=== PATIENT | female | born 1935 | race Caucasian/White ===

== ENCOUNTER 2016-09-22 10:00 | Inpatient (IN) ==
[2016-09-22 12:07] LABS: Basophils # (Auto) 0 K/mcL (0.0-0.3); Basophils % (Auto) 0.1 % (0.0-2.0); Eosinophils # (Auto) 0 K/mcL (0.0-0.7); Eosinophils % (Auto) 0.3 % (0.0-7.0); Granulocytes % (Auto) 80.7 % (38.0-78.0); Lymphocytes # (Auto) 1.1 K/mcL (1.5-4.8); Lymphocytes % (Auto) 14.7 % (15.5-49.0); Mean Cell Volume 89.3 fL (80.0-100.0); Mean Corpuscular HGB Conc 33.8 g/dL (31.0-36.0); Mean Corpuscular Hemoglobin 30.1 pg (26.0-34.0); Monocytes # (Auto) 0.3 K/mcL (0.1-0.9); Monocytes % (Auto) 4.2 % (1.0-12.0); Platelet Count 230 K/mcL (140-440); RBC 4.32 M/mcL (4.00-5.20); Red Cell Distribution Width 13.9 % (11.5-14.5)
[2016-09-22 12:18] LABS: Blood Urea Nitrogen 17 mg/dl (8-23)
[2016-09-22 12:43] LABS: Appearance,Urine HAZY; Bilirubin,Urine NEG (NEG); Color,Urine YELLOW; Glucose,Urine (UA) NEGATIVE (NEG); Leukocyte Esterase,Urine NEG /uL (NEG); Nitrate,Urine NEG (NEG); Protein,Urine NEG (NEG); Specific Gravity,Urine 1.016 (1.000-1.035); Urine Blood NEG mg/dL (<0.03); Urobilinogen,Urine NEG (NEG)
[2016-09-25] MEDS ORDERED: GABAPENTIN 300 MG CAPSULE PO SCH (05:00)
[2016-09-25] MEDS ORDERED: ACETAMINOPHEN 500 MG TABLET PO SCH (05:00)
[2016-09-25] MEDS ORDERED: oxyCODONE 10 MG TAB.ER.12H PO SCH (05:00)
[2016-09-25] MEDS ORDERED: ONDANSETRON 4 MG/2 ML VIAL ONE (08:15)
[2016-09-25] MEDS: ceFAZolin 1 GM VIAL IV SCH ×3 (08:25→17:38)
[2016-09-25] MEDS ORDERED: TRANEXAMIC ACID 1,000 MG/10 ML VIAL IV ONE (08:30)
[2016-09-25] MEDS ORDERED: LIDOCAINE HCL/PF 100 MG/5 ML SYRINGE IV ONE (08:30)
[2016-09-25] MEDS ORDERED: PHENYLEPHRINE 10 MG/ML VIAL IV ONE (08:30)
[2016-09-25] MEDS ORDERED: PROPOFOL 200 MG/20 ML VIAL IV ONE (08:30)
[2016-09-25] MEDS ORDERED: SUCCINYLCHOLINE 20 MG/ML ML IV ONE (08:30)
[2016-09-25] MEDS ORDERED: DEXAMETHASONE 10 MG/ML VIAL IV ONE (08:30)
[2016-09-25] MEDS ORDERED: KETOROLAC 30 MG/ML VIAL IV ONE (08:30)
[2016-09-25] MEDS ORDERED: MIDAZOLAM 5 MG/5 ML VIAL IV ONE (08:30)
[2016-09-25] MEDS ORDERED: fentaNYL 250 MCG/5 ML VIAL IV ONE (08:30)
[2016-09-25] MEDS ORDERED: ROPIVACAINE HCL/PF 30 ML VIAL IJ ONE (08:30)
[2016-09-25] MEDS ORDERED: GENTAMICIN SULFATE 800 MG/20 ML VIAL IR ONE (09:17)
[2016-09-25] MEDS ORDERED: diphenhydrAMINE 50 MG/ML VIAL IV PRN (09:45)
[2016-09-25] MEDS ORDERED: ePHEDrine 50 MG/ML AMPUL IV PRN (09:45)
[2016-09-25] MEDS ORDERED: LACTATED RINGERS 1,000 ML IV SCH (09:45)
[2016-09-25] MEDS ORDERED: MEPERIDINE 25 MG/ML SYRINGE IV PRN (09:45)
[2016-09-25] MEDS ORDERED: LACTATED RINGERS 250 ML IV PRN (09:45)
[2016-09-25] MEDS ORDERED: PROMETHAZINE 25 MG/ML VIAL IV PRN (09:45)
[2016-09-25] MEDS ORDERED: IPRATROPIUM/ALBUTEROL 3 ML AMPUL.NEB NEB PRN (09:45)
[2016-09-25] MEDS ORDERED: ONDANSETRON 4 MG/2 ML VIAL IV PRN (09:45)
[2016-09-25] MEDS ORDERED: METHOCARBAMOL 1,000 MG/10 ML VIAL IV PRN (09:45)
[2016-09-25] MEDS ORDERED: MEPERIDINE 50 MG/ML SYRINGE IM PRN (09:45)
[2016-09-25] MEDS ORDERED: BENZOCAINE/MENTHOL 1 LOZENGE PO PRN ×2 (09:45→10:19)
[2016-09-25] MEDS ORDERED: fentaNYL 100 MCG/2 ML VIAL IV PRN (09:45)
[2016-09-25] MEDS ORDERED: FLUMAZENIL 0.1 MG/ML ML IV PRN (09:45)
[2016-09-25] MEDS ORDERED: PROMETHAZINE 25 MG/ML VIAL IM PRN (09:45)
[2016-09-25] MEDS ORDERED: NALOXONE HCL 0.4 MG/ML VIAL IV PRN (09:45)
[2016-09-25] MEDS ORDERED: TRANEXAMIC ACID 1,000 MG/10 ML VIAL IV SCH (10:19)
[2016-09-25] MEDS ORDERED: ACETAMINOPHEN 325 MG TABLET PO PRN (10:19)
[2016-09-25] MEDS ORDERED: HYDROmorphone 2 MG/ML SYRINGE IV PRN (10:19)
[2016-09-25] MEDS ORDERED: POLYETHYLENE GLYCOL 3350 17 GM PACKET PO PRN (10:19)
[2016-09-25] MEDS ORDERED: HYDROcodone/APAP 10/325MG TABLET PO PRN (10:19)
[2016-09-25] MEDS ORDERED: KETOROLAC 15 MG/ML VIAL IV PRN (10:19)
[2016-09-25] MEDS ORDERED: FLEETS ADULT ENEMA PR PRN (10:19)
[2016-09-25] MEDS ORDERED: MAGNESIUM HYDROXIDE 30 ML ORAL.SUSP PO PRN (10:19)
[2016-09-25] MEDS ORDERED: BISACODYL 10 MG SUPP.RECT PR PRN (10:19)
--- NOTE | 2016-09-25 10:46 | Operative Note ---
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 PROCEDURE: Left reverse total shoulder with cementless components as well as biceps tenodesis and distal clavicle excision. SURGEON: Rishabh Rodrigues MD PROMOTIONAL MARKETING AGENT: Jimy Castaneda PA-C. ANESTHESIA: General LMA anesthesia. COMPLICATIONS: None. DESCRIPTION OF PROCEDURE: The patient was brought to the operating room and put to sleep with general LMA anesthesia. Once asleep, the patient had the left shoulder sterilely prepped and draped in the usual sterile fashion. Once this was done, we exposed the joint and released the conjoint tendon medially and released the subscap muscle and exposed the joint. We made our cut to the humeral head at about 20 degrees of retroversion. Once this was done, I irrigated and subluxed the shaft posteriorly. I performed a 360 degree capsulotomy and released the remnants of the biceps tendon. I then biceps tenodesed the biceps tendon to the pec major with 2 figure-of-8 stitches with FiberWire, irrigated thoroughly. Once this was done, I then reamed centrally up to the size 36, placed a 36 baseplate with a 32 mm central screw. Once this baseplate was fixated I placed a 36 mm glenosphere with 2 mm of eccentricity and 6 mm of offset. Once this was done, I then reamed up on the humeral side. This was reamed up to the size 12 stem and a 12 stem was placed with a trial. This seemed to fit very nicely. I placed a size 12 stem with a standard thickness poly. This was reduced with the final implants. I irrigated thoroughly and I then placed irrigation and implanted the stem, reduced the head and irrigated thoroughly. I then closed the deltopectoral interval after thorough irrigation. I made a separate incision above the acromioclavicular joint. Once this was done, I released the capsule around the distal clavicle, excised 10 mm of distal clavicle, used the Bovie to take out any spurs and stop any bleeding, repaired the capsule superiorly with 2-0 Vicryl after the bony fragment was removed and closed the skin with 2-0 Vicryl and closed the skin with 3-0 Monocryl. The other incision was closed with mirna. The patient tolerated this well without complication. A sterile bandage was applied. A DonJoy sling was fitted and given to the patient. ALEKSANDAR:yenifer Job ID: [id number] Doc ID: [id number] Rishabh Rodrigues MD
--- NOTE | 2016-09-25 11:21 | XRay Report ---
CLINICAL INFORMATION: Postop total shoulder prostheses COMPARISON: None. FINDINGS: Left shoulder prostheses is anatomically aligned. No osseous abnormality. Soft tissue swelling seen as expected. IMPRESSION: Negative Interpreted and Authenticated by: Magdi Fischer 09/25/16
[2016-09-25] MEDS: 0.45 % SODIUM CHLORIDE 1,000 ML IV SCH ×4 (12:42→22:48)
--- NOTE | 2016-09-25 12:44 | Brief Operative Note ---
Date of procedure: 09/25/16 Pre-op diagnosis: Left shoulder rca and ac djd and bicep tear Post-op diagnosis: same Procedure: left reverse tsa with bicep tenodesis and dce Grafts/Implants: Yes Anesthesia: GETA Findings: svere alicia Complications: none Surgeon: Rishabh Rodrigues Campaign Management Specialist: Leo Castaneda Estimated blood loss (cc): 20 Tourniquet Time (Minutes): 85 Specimens Removed/Pathology: none sent Condition: stable Disposition: PACU
[2016-09-25] MEDS: 0.9 % SODIUM CHLORIDE 10 ML SYRINGE IV SCH ×2 (14:14→22:49)
[2016-09-25] MEDS: ONDANSETRON 4 MG/2 ML VIAL IV PRN ×2 (17:39→21:19)
[2016-09-25] MEDS ORDERED: SENNOSIDES 1 TABLET PO SCH (21:00)
[2016-09-25] MEDS ORDERED: ATORVASTATIN 20 MG TABLET PO SCH (21:00)
[2016-09-25] MEDS ORDERED: PREVAGEN PO SCH (21:00)
[2016-09-25] MEDS ORDERED: NAPROXEN (PP) 200MG TABLET (#24) PO SCH (21:00)
[2016-09-25] MEDS ORDERED: LACTOBACILLUS 1 CAPSULE PO SCH (21:00)
[2016-09-25] MEDS ORDERED: CINNAMON BARK PO SCH (21:00)
[2016-09-25] MEDS ORDERED: OXYBUTYNIN CHLORIDE 5 MG TAB.XL.24H PO SCH (21:00)
[2016-09-25] MEDS ORDERED: TEMAZEPAM 15 MG CAPSULE PO PRN (21:00)
[2016-09-25] MEDS ORDERED: CELECOXIB 200 MG CAPSULE PO SCH (21:00)
[2016-09-25] MEDS ORDERED: ASPIRIN 325 MG ENTERIC COATED TABLET PO SCH (21:00)
[2016-09-25] MEDS ORDERED: ASCORBIC ACID 500 MG TABLET PO SCH (21:00)
[2016-09-25] MEDS: GABAPENTIN 300 MG CAPSULE PO SCH (21:30)
[2016-09-25] MEDS: ACETAMINOPHEN 325 MG TABLET PO SCH (21:30)
[2016-09-25] MEDS: DOCUSATE SODIUM 100 MG CAPSULE PO SCH (21:30)
[2016-09-26] MEDS: ceFAZolin 1 GM VIAL IV SCH (00:31)
[2016-09-26] MEDS: 0.9 % SODIUM CHLORIDE 10 ML SYRINGE IV SCH (05:41)
[2016-09-26] MEDS: 0.45 % SODIUM CHLORIDE 1,000 ML IV SCH (05:42)
[2016-09-26] MEDS ORDERED: PANTOPRAZOLE 40 MG TABLET PO SCH (07:30)
[2016-09-26] MEDS: ACETAMINOPHEN 325 MG TABLET PO SCH (07:49)
[2016-09-26] MEDS ORDERED: predniSONE 1 MG TABLET PO SCH (08:00)
[2016-09-26] MEDS: GABAPENTIN 300 MG CAPSULE PO SCH (08:32)
[2016-09-26] MEDS: DOCUSATE SODIUM 100 MG CAPSULE PO SCH (08:35)
[2016-09-26] MEDS ORDERED: VIT A,C & E/LUTEIN/MINERALS TABLET PO SCH (09:00)
--- NOTE | 2016-09-26 09:52 | Orthopedic Progress Note ---
Subjective Patient information: Note initiated : 09/26/16 at 9:50 am Service Date, if different from initiated Date: [] Patient: Pau De La Torre 80 y/o F admitted on 09/25/16 for Left Reverse Total Shoulder Arthroplasty with Miguel. Chief Complaint: [doing well with no c/o sob or cp and eating well but had n and v yesterday] Objective Vital signs: Vital Signs Temp Pulse Resp BP BP Pulse Ox 09/26/16 08:13 98 F 18 144/74 91 09/26/16 04:50 97.9 F 77 18 144/76 95 09/25/16 22:46 97.9 F 81 16 160/83 93 09/25/16 20:00 97.4 F 78 18 157/76 92 09/25/16 13:55 149/64 99 09/25/16 12:55 153/80 96 09/25/16 12:25 157/76 98 09/25/16 11:40 157/64 95 09/25/16 11:25 154/72 95 09/25/16 11:13 65 16 146/62 92 09/25/16 10:53 61 11 L 157/46 94 09/25/16 10:40 67 14 144/63 97 09/25/16 10:35 68 17 149/60 97 09/25/16 10:30 67 12 146/63 97 09/25/16 10:25 65 12 134/56 99 09/25/16 10:20 97.3 F 22 L 12 134/56 99 Intake and Output 09/25/16 09/26/16 09/26/16 21:59 05:59 13:59 Intake Total 320 / 320 1350 / 1350 620 / 620 Output Total 1301 / 1301 1100 / 1100 250 / 250 Balance -981 / -981 250 / 250 370 / 370 Intake: IV 1000 / 1000 Sodium Chloride 0.45% 1, 1000 / 1000 000 ml @ 100 mls/hr IV . Q10H [facility] Rx#:[id number] Oral 320 / 320 350 / 350 620 / 620 Output: Void Amount 850 / 850 1100 / 1100 250 / 250 # of times incontinent of 1 / 1 urine Emesis 450 / 450 Other: Meal Dinner Percent of Meal Consumed 75% Feeding Ability Assist with Tray Set Up # Voids 1 Weight 198 lb 8 oz Intake & Output: Intake & Output 05/26/17 05/27/17 05/27/17 21:59 05:59 13:59 Intake Total 320 / 320 1350 / 1350 620 / 620 Output Total 1301 / 1301 1100 / 1100 250 / 250 Balance -981 / -981 250 / 250 370 / 370 Weight 198 lb 8 oz Intake: IV 1000 / 1000 Sodium Chloride 0.45% 1, 1000 / 1000 000 ml @ 100 mls/hr IV . Q10H [facility] Rx#:[id number] Oral 320 / 320 350 / 350 620 / 620 Output: Void Amount 850 / 850 1100 / 1100 250 / 250 # of times incontinent of urine Emesis 450 / 450 Other: Meal Dinner Percent of Meal Consumed 75% Feeding Ability Assist with Tray Set Up # Voids 1 Incision: Yes healing Incision clean and dry: Yes Dressing: Yes clean Weight bearing status: partial Neurological exam IM: Yes oriented X3, Yes neurovascular intact Extremities exam IM: Yes Foot pink and warm, Yes neurovascular intact (Plan to dc home today ) - Labs CBC & BMP: 09/22/16 10:41 09/22/16 10:41 Labs: 09/22/16 10:41 Hgb 13.0 Hct 38.5
== END 2016-09-26 11:35 | disposition home or self-care (01) | DRG 483 ==
LOC: MEDSUR 09-25 06:23
PROVIDERS: ADMIT Orthopaedic Surgery; ATTEND Orthopaedic Surgery

== ENCOUNTER 2017-10-25 05:27 | Inpatient (IN) ==
[2017-10-18 16:13] LABS: Basophils # (Auto) 0 K/mcL (0.0-0.3); Basophils % (Auto) 0.3 % (0.0-2.0); Eosinophils # (Auto) 0 K/mcL (0.0-0.7); Eosinophils % (Auto) 0.5 % (0.0-7.0); Granulocytes % (Auto) 74.8 % (38.0-78.0); Lymphocytes # (Auto) 1.3 K/mcL (1.5-4.8); Lymphocytes % (Auto) 18.7 % (15.5-49.0); Mean Cell Volume 90.1 fL (80.0-100.0); Mean Corpuscular HGB Conc 33.6 g/dL (31.0-36.0); Mean Corpuscular Hemoglobin 30.2 pg (26.0-34.0); Monocytes # (Auto) 0.4 K/mcL (0.1-0.9); Monocytes % (Auto) 5.7 % (1.0-12.0); Platelet Count 254 K/mcL (140-440); RBC 4.43 M/mcL (4.00-5.20); Red Cell Distribution Width 14.5 % (11.5-14.5)
[2017-10-18 16:34] LABS: Blood Urea Nitrogen 27 mg/dl (8-23)
[2017-10-18 16:40] LABS: Appearance,Urine HAZY; Bacteria,Urine 0 /hpf (0); Bilirubin,Urine NEG (NEG); Color,Urine YELLOW; Glucose,Urine (UA) NEGATIVE (NEG); Leukocyte Esterase,Urine 250 /uL (NEG); Protein,Urine NEG (NEG); Urine Blood NEG mg/dL (<0.03); Urine RBC 1 /hpf (0-1); Urine Squamous Epithelial Cell 3 /hpf (0-4); Urine WBC 20 /hpf (0-4); Urobilinogen,Urine NEG (NEG)
[~2017-10-25 05:27] MED LIST: IPRATROPIUM/ALBUTEROL 3 ML AMPUL.NEB NEB PRN; SCOPOLAMINE 1 PATCH PATCH TOPICAL PRN
[2017-10-25] MEDS ORDERED: oxyCODONE 10 MG TAB.ER.12H PO SCH (07:00)
[2017-10-25] MEDS ORDERED: PREGABALIN 75 MG CAPSULE PO SCH (07:00)
[2017-10-25] MEDS ORDERED: ACETAMINOPHEN 500 MG TABLET PO SCH (07:00)
[2017-10-25] MEDS ORDERED: ceFAZolin 1 GM VIAL IV SCH (07:00)
[2017-10-25] MEDS ORDERED: KETOROLAC 30 MG, ROPIVACAINE HCL/PF 49.5 ML, EPINEPHrine 0.5 MG, 0.9 % SODIUM CHLORIDE ... IJ ONE (07:02)
[2017-10-25] MEDS ORDERED: GENTAMICIN SULFATE 800 MG/20 ML VIAL IR ONE (07:03)
[2017-10-25 07:05] LABS: Appearance,Urine CLEAR; Bacteria,Urine 0 /hpf (0); Bilirubin,Urine NEG (NEG); Color,Urine YELLOW; Glucose,Urine (UA) NEGATIVE (NEG); Leukocyte Esterase,Urine NEG /uL (NEG); Mucus,Urine FEW /hpf (0); Protein,Urine NEG (NEG); Specific Gravity,Urine 1.018 (1.000-1.035); Urine Blood NEG mg/dL (<0.03); Urine Hyaline Cast 7 /lpf (0-2); Urine RBC 2 /hpf (0-1); Urine Squamous Epithelial Cell 0 /hpf (0-4); Urine WBC 2 /hpf (0-4); Urobilinogen,Urine NEG (NEG)
[2017-10-25] MEDS ORDERED: GENTAMICIN PER PHARMACY IV ONE (07:29)
[2017-10-25] MEDS ORDERED: LIDOCAINE HCL/PF 100 MG/5 ML SYRINGE IV ONE (07:45)
[2017-10-25] MEDS ORDERED: ONDANSETRON 4 MG/2 ML VIAL IV ONE (07:45)
[2017-10-25] MEDS ORDERED: TRANEXAMIC ACID 1,000 MG/10 ML VIAL IV ONE ×2 (07:45→09:05)
[2017-10-25] MEDS ORDERED: SUCCINYLCHOLINE 20 MG/ML ML IV ONE (07:45)
[2017-10-25] MEDS ORDERED: DEXAMETHASONE 10 MG/ML VIAL IV ONE (07:45)
[2017-10-25] MEDS ORDERED: GENTAMICIN SULFATE 240 MG in 0.9 % SODIUM CHLORIDE 250 ML IV SCH (07:45)
[2017-10-25] MEDS ORDERED: MIDAZOLAM 2 MG/2 ML VIAL IV ONE (07:45)
[2017-10-25] MEDS ORDERED: PROPOFOL 200 MG/20 ML VIAL IV ONE (07:45)
[2017-10-25] MEDS ORDERED: GLYCOPYRROLATE 0.2 MG/ML VIAL IV ONE (07:45)
[2017-10-25] MEDS ORDERED: fentaNYL 100 MCG/2 ML VIAL IV PRN (08:34)
[2017-10-25] MEDS ORDERED: LACTATED RINGERS 250 ML IV PRN (08:34)
[2017-10-25] MEDS ORDERED: BENZOCAINE/MENTHOL 1 LOZENGE PO PRN ×2 (08:34→09:05)
[2017-10-25] MEDS ORDERED: ONDANSETRON 4 MG/2 ML VIAL IV PRN ×2 (08:34→09:05)
[2017-10-25] MEDS ORDERED: PROMETHAZINE 25 MG/ML VIAL IV PRN (08:34)
[2017-10-25] MEDS ORDERED: MEPERIDINE 25 MG/ML SYRINGE IV PRN (08:34)
[2017-10-25] MEDS ORDERED: NALOXONE HCL 0.4 MG/ML VIAL IV PRN (08:34)
[2017-10-25] MEDS ORDERED: FLUMAZENIL 0.1 MG/ML ML IV PRN (08:34)
[2017-10-25] MEDS ORDERED: diphenhydrAMINE 50 MG/ML VIAL IV PRN (08:34)
[2017-10-25] MEDS ORDERED: IPRATROPIUM/ALBUTEROL 3 ML AMPUL.NEB NEB PRN (08:34)
[2017-10-25] MEDS ORDERED: LACTATED RINGERS 1,000 ML IV SCH (08:45)
[2017-10-25] MEDS ORDERED: KETOROLAC 15 MG/ML VIAL IV PRN (09:05)
[2017-10-25] MEDS ORDERED: FLEETS ADULT ENEMA PR PRN (09:05)
[2017-10-25] MEDS ORDERED: TEMAZEPAM 15 MG CAPSULE PO PRN (09:05)
[2017-10-25] MEDS ORDERED: MAGNESIUM HYDROXIDE 30 ML ORAL.SUSP PO PRN (09:05)
[2017-10-25] MEDS ORDERED: POLYETHYLENE GLYCOL 3350 17 GM PACKET PO PRN (09:05)
[2017-10-25] MEDS ORDERED: ACETAMINOPHEN 325 MG TABLET PO PRN (09:05)
[2017-10-25] MEDS ORDERED: BISACODYL 10 MG SUPP.RECT PR PRN (09:05)
--- NOTE | 2017-10-25 09:05 | Brief Operative Note ---
Date of procedure: 10/25/17 Pre-op diagnosis: Right hip djd Post-op diagnosis: same Procedure: right total hip Grafts/Implants: Yes Anesthesia: NICHOLAS Surgeon: Rishabh Rodrigues Refiner Operator: David Arellano Estimated blood loss (cc): 100 Specimens Removed/Pathology: none sent Condition: stable Disposition: PACU
--- NOTE | 2017-10-25 09:53 | Operative Note ---
DATE OF OPERATION: 10/25/2017 PREOPERATIVE DIAGNOSIS: Right hip degenerative arthritis. POSTOPERATIVE DIAGNOSIS: Right hip degenerative arthritis. PROCEDURE: Right total hip arthroplasty. SURGEON: Rishabh Rodrigues MD PATTERN STAMPER: David Arellano PA-C ANESTHESIA: General LMA anesthesia. COMPLICATIONS: None. DESCRIPTION OF PROCEDURE: The patient was brought to the operating room and put to sleep with general LMA anesthesia. Once asleep, the patient had the right hip sterilely prepped and draped in the usual sterile fashion. A timeout was performed and we confirmed the operative site. We then performed a superior approach to the hip, making an incision superior to the greater trochanter. We dissected down to the fascial layer incised with the muscle fibers. Once this was done, we then identified the posterior capsule. The posterior capsule was then released. We dislocated the hip and made the neck cut at 30 mm of length from the center of hip rotation. At that point we then subluxed the hip anteriorly, reamed up the acetabulum after removing the labrum which was torn. This was reamed up to the size 52 and we implanted a 52 cup with a 35 mm screw. Inclination and version, 40 degrees of inclination and 15 to 20 degrees of anteversion. We placed a hooded liner and then prepared the femur. The femur was prepared and broached up to the size of a 5 stem, reamed distally to a 10 and then cemented into place after trialing and x-raying the hip with a 5 stem cemented. Reaming the calcar slightly lower than where we were, we were a little bit long, about 1/4 inch long. We reamed to within anatomic proportions and then placed the stem. The stem sat very nicely. Once completely dry in 15 degrees of anteversion, we then reduced the hip with a standard neck length. It was very stable up to 90 degrees of internal and external rotation. The hooded liner had already been placed for extra stability. We irrigated thoroughly, injected the soft tissues with the post-inject formula, and closed the fascial layer with #1 Stratafix. Once this was done, we irrigated thoroughly and closed the skin with a Stratafix, with the fascial layer. We closed the skin with 2-0 Vicryl and adhesive closure. The patient tolerated this well. There was no complication. Sterile bandage was applied. Blood loss about 100 mL RBAnoop:gilmar Lehman: 10/25/2017 09:10:37 Job ID: [id number] Doc ID: [id number] Rishabh Rodrigues MD
--- NOTE | 2017-10-25 12:19 | XRay Report ---
CLINICAL INFORMATION: Post-op Total Hip COMPARISON: None. FINDINGS: Right total hip prosthesis is anatomically aligned. There is mild degenerative change in both SI and left hip joint. There is a small avulsion on a fracture off the tip of the left greater trochanter.. Soft tissue swelling the surgical site seen as expected IMPRESSION: Negative Interpreted and Authenticated by: Magdi Fischer 10/25/17
[2017-10-25] MEDS: HYDROmorphone 2 MG/ML VIAL IV PRN ×2 (12:39→17:46)
[2017-10-25] MEDS: ceFAZolin 1 GM VIAL IV SCH ×2 (14:23→21:44)
[2017-10-25] MEDS: 0.45 % SODIUM CHLORIDE 1,000 ML IV SCH (14:24)
[2017-10-25] MEDS: 0.9 % SODIUM CHLORIDE 10 ML SYRINGE IV SCH ×2 (14:40→21:47)
[2017-10-25] MEDS ORDERED: NAPROXEN 250 MG TABLET PO SCH (17:30)
[2017-10-25] MEDS ORDERED: LOSARTAN 50 MG TABLET PO SCH (21:00)
[2017-10-25] MEDS ORDERED: ACETAMINOPHEN 325 MG TABLET PO SCH (21:00)
[2017-10-25] MEDS ORDERED: SENNOSIDES 1 TABLET PO SCH (21:00)
[2017-10-25] MEDS ORDERED: ASCORBIC ACID 500 MG TABLET PO SCH (21:00)
[2017-10-25] MEDS ORDERED: ATORVASTATIN 20 MG TABLET PO SCH (21:00)
[2017-10-25] MEDS ORDERED: LACTOBACILLUS 1 CAPSULE PO SCH (21:00)
[2017-10-25] MEDS ORDERED: OXYBUTYNIN CHLORIDE 5 MG TAB.XL.24H PO SCH (21:00)
[2017-10-25] MEDS ORDERED: CINNAMON BARK PO SCH (21:00)
[2017-10-25] MEDS: ASPIRIN 325 MG ENTERIC COATED TABLET PO SCH (21:26)
[2017-10-25] MEDS: DOCUSATE SODIUM 100 MG CAPSULE PO SCH (21:26)
[2017-10-25] MEDS: GABAPENTIN 300 MG CAPSULE PO SCH (21:27)
[2017-10-25] MEDS: ALFALFA PO SCH (21:28)
[2017-10-26] MEDS: 0.45 % SODIUM CHLORIDE 1,000 ML IV SCH ×2 (01:21→06:45)
[2017-10-26] MEDS: 0.9 % SODIUM CHLORIDE 10 ML SYRINGE IV SCH (06:45)
--- NOTE | 2017-10-26 07:28 | Orthopedic Progress Note ---
Subjective Patient information: Note initiated : 10/26/17 at 7:27 am Service Date, if different from initiated Date: [] Patient: Pau De La Torre 81 y/o F admitted on 10/25/17 for Right Total Hip Arthroplasty . Chief Complaint: [Pt is stable this morning on post operative day 1 without any significant concerns or complaints. Patients vital signs have remained stable. Patients dressing is dry and is grossly instact from a neurovascular and motor standpoint. Patients 10 point ROS is otherwise negative. ] Objective Vital signs: Vital Signs Temp Pulse Pulse Pulse Resp BP Pulse Ox 10/26/17 04:00 97.9 F 63 14 172/67 92 10/25/17 23:52 97.9 F 66 14 154/79 94 10/25/17 23:51 94 10/25/17 19:10 80 16 94 10/25/17 19:07 98.2 F 69 16 146/71 90 10/25/17 19:00 90 10/25/17 17:00 93 10/25/17 15:09 98 F 18 96 10/25/17 15:00 96 10/25/17 13:09 136/79 93 10/25/17 13:00 92 10/25/17 12:08 166/76 95 10/25/17 11:37 154/64 95 10/25/17 11:08 159/65 95 10/25/17 11:06 93 10/25/17 10:53 142/64 96 10/25/17 10:37 140/62 96 10/25/17 10:23 135/58 96 10/25/17 10:15 96.6 F L 65 16 130/78 94 10/25/17 10:12 94 10/25/17 10:07 124/72 94 10/25/17 09:52 98.7 F 69 20 121/42 95 10/25/17 09:40 97.0 F 71 11 L 110/53 97 10/25/17 09:35 97.0 F 73 14 110/45 95 10/25/17 09:30 97.0 F 72 16 116/58 92 10/25/17 09:25 97.0 F 78 20 119/41 99 10/25/17 09:20 97.0 F 77 18 128/50 99 10/25/17 09:15 97.0 F 91 H 91 H 12 83/62 96 Intake and Output 10/25/17 10/26/17 10/26/17 21:59 05:59 13:59 Intake Total 420 / 420 1200 / 1200 Output Total 975 / 975 1225 / 1225 400 / 400 Balance -555 / -555 -25 / -25 -400 / -400 Intake: IV 1000 / 1000 Sodium Chloride 0.45% 1,000 ml 1000 / 1000 @ 100 mls/hr IV .Q10H [facility] Rx#: [id number] Oral 420 / 420 200 / 200 Output: Void Amount 975 / 975 1225 / 1225 400 / 400 Other: # Voids 1 Weight 188 lb Intake & Output: Intake & Output 10/25/17 10/26/17 10/26/17 21:59 05:59 13:59 Intake Total 420 / 420 1200 / 1200 Output Total 975 / 975 1225 / 1225 400 / 400 Balance -555 / -555 -25 / -25 -400 / -400 Weight 188 lb Intake: IV 1000 / 1000 Sodium Chloride 0.45% 1,000 ml 1000 / 1000 @ 100 mls/hr IV .Q10H [facility] Rx#: [id number] Oral 420 / 420 200 / 200 Output: Void Amount 975 / 975 1225 / 1225 400 / 400 Other: # Voids 1 Incision: Yes healing Dressing: Yes dry Weight bearing status: full Neurological exam IM: Yes motor sensory intact, Yes neurovascular intact Extremities exam IM: Yes Foot pink and warm, Yes neurovascular intact - Labs CBC & BMP: 10/26/17 04:15 10/18/17 14:46 Labs: Orthopedic Labs 10/18/17 14:46 PT 12.7 INR 1.0 APTT 31 10/26/17 10/18/17 04:15 14:47 Hgb 13.4 Hct 36.0 39.9 Assessment and Plan (1) Hx of total hip arthroplasty The patient has been educated regarding dressing care, Physical Therapy recommendations, home exercises, restrictions, and follow up appointments. The patient has had all necessary DME prescribed. The patient has remained relatively stable during their hospital course. Leave Dermabond patch intact until followup Status: Acute
[2017-10-26] MEDS ORDERED: OMEPRAZOLE 20 MG CAPSULE PO SCH (07:30)
--- NOTE | 2017-10-26 07:32 | Discharge Summary ---
Ortho Discharge - [facility] - Patient Instructions Diet: Regular Diet Activity: activity as tolerated, weight bearing as tolerated Total Hip Protocol: Follow activity instructions as provided by Physical Therapy. Dressing Care: May shower in 2 days Patient Education: Total Hip Replacement (DC) Additional Instructions: Discharge Instructions: Do the exercises at home that physical therapy gave you. Weight bearing as tolerated. Your physical therapy is through [facility]. Your first appointment is on October 28 @ 10 am. Please arrive 15 minutes for paperwork. Wear comfortable clothing for your physical therapy appointment. Consider pre- medicating with pain medication 45 minutes prior to your appointment. Take your prescription, photo ID, insurance cards, and current medication list with you to your first physical therapy appointment. Take your prescription to pickling machine operator any medication or equipment (such as walker, crutches, toilet riser or C.P.M.) You have Dermabond (a dressing with a mesh-like appearance), DO NOT remove mesh. You may start showering on post op day #2. The Dermabond dressing can get wet, do not scrub dressing. Do not put lotions, soaps or perfumes on dressing. Pat dry, then place new dressing (above). To avoid constipation while taking any narcotic pain medication, take an over the counter stool softener/laxative. Use your Cryocuff or ice packs as directed, on for 20 minutes at a time throughout the day. This and elevation will help with pain and swelling. Call your physician for fevers above 100.5 or pain not controlled by medication. Your prescriptions are with your discharge information. Some medications were electronically transmitted to your pharmacy of choice. Take Aspirin twice daily, for 30 days, as prescribed to prevent blood clots ( see medication list). - Problem Maintenance (1) Hx of total hip arthroplasty Status: Acute - Follow Up Plan Follow Up Appointments: David Arellano PA-C [Physician Riding Instructor] - 11/09/17 9:20 am Disposition: Hospice - Home Prognosis: Good Rehab Potential: Good I certify that the patient requires SNF services: No Overall status at discharge: patient is progressing back to baseline - Orders For Discharge Prescriptions: Acetaminophen [Tylenol] 650 mg PO BID #60 tab Aspirin [Ecotrin] 325 mg PO BID #60 tab.ec Docusate Sodium [Colace] 100 mg PO BID #60 cap Naproxen [Naprosyn] 500 mg PO BIDCC #60 tab Additional Discharge Orders: Physical Therapy at Discharge - [facility] Location: Determined By Patient Toilet Riser Discharge Order Location: Determined By Patient Walker Location: Determined By Patient
[2017-10-26] MEDS ORDERED: NAPROXEN 250 MG TABLET PO SCH (08:00)
[2017-10-26] MEDS ORDERED: predniSONE 1 MG TABLET PO SCH (08:00)
[2017-10-26] MEDS ORDERED: ACETAMINOPHEN 500 MG TABLET PO SCH (08:00)
[2017-10-26] MEDS: ASPIRIN 325 MG ENTERIC COATED TABLET PO SCH (08:05)
[2017-10-26] MEDS: GABAPENTIN 300 MG CAPSULE PO SCH (08:05)
[2017-10-26] MEDS: DOCUSATE SODIUM 100 MG CAPSULE PO SCH (08:06)
[2017-10-26] MEDS: ALFALFA PO SCH (08:06)
[2017-10-26] MEDS ORDERED: PREVAGEN PO SCH (09:00)
[2017-10-26] MEDS ORDERED: MAGNESIUM OXIDE 400 MG TABLET PO SCH (09:00)
[2017-10-26] MEDS ORDERED: VIT A,C & E/LUTEIN/MINERALS TABLET PO SCH (09:00)
[2017-10-26] MEDS ORDERED: ASPIRIN 325 MG ENTERIC COATED TABLET PO SCH (09:00)
== END 2017-10-26 12:58 | disposition hospice, home (50) | DRG 470 ==
LOC: MEDSUR 05:27
PROVIDERS: ADMIT Orthopaedic Surgery; ATTEND Orthopaedic Surgery

== ENCOUNTER 2024-09-11 18:13 | Inpatient (IN) ==
[2024-09-11] MEDS: 0.9 % SODIUM CHLORIDE 1,000 ML IV ONE (18:46)
[2024-09-11 19:21] LABS: Basophils # (Auto) 0.01 K/mcL (0.00-0.30); Basophils % (Auto) 0.1 % (0.0-2.0); Eosinophils # (Auto) 0.02 K/mcL (0.00-0.70); Eosinophils % (Auto) 0.2 % (0.0-7.0); Hematocrit 42.9 % (34.1-44.9); Hemoglobin 13.9 g/dL (11.2-15.7); Lymphocytes % (Auto) 12.3 % (15.5-49.0); Mean Cell Volume 92.1 fL (80.0-100.0); Mean Corpuscular HGB Conc 32.4 g/dL (31.0-36.0); Mean Platelet Volume 10.4 fL (8.8-12.5); Monocytes # (Auto) 0.66 K/mcL (0.10-0.90); Monocytes % (Auto) 6.8 % (1.0-12.0); Platelet Count 225 K/mcL (140-440); RBC 4.66 M/mcL (3.59-5.38); Red Cell Distribution Width 13.6 % (11.5-14.5); WBC 9.8 K/mcL (4.5-11.0)
[2024-09-11] MEDS: ACETAMINOPHEN 500 MG TABLET PO ONE (20:10)
[2024-09-11 20:27] LABS: Appearance,Urine Clear (Clear); Bacteria,Urine Many /hpf (0); Bilirubin,Urine Negative (Negative); Color,Urine Yellow; Glucose,Urine (UA) >=1000 mg/dL (Negative); Ketones,Urine Negative (Negative); Leukocyte Esterase,Urine Negative /uL (Negative); Nitrate,Urine Negative (Negative); Protein,Urine Negative (Negative); Specific Gravity,Urine 1.015 (1.000-1.035); Urine Blood Negative ery/mcL (Negative); Urine RBC 1 /hpf (0-3); Urine Squamous Epithelial Cell 0 /hpf (0-4); Urine WBC 2 /hpf (0-4); Urobilinogen,Urine Normal
[2024-09-11 20:28] LABS: ALT/SGPT 32 U/L (<40); AST/SGOT 18 U/L (<32); Albumin 3.8 gm/dL (3.2-5.2); Albumin/Globulin Ratio 1.5 (1.0-2.3); Alkaline Phosphatase 73 U/L (39-117); Bilirubin,Total 1.1 mg/dL (0.1-1.0); Blood Urea Nitrogen 38 mg/dL (8-23); Calcium 12.6 mg/dL (8.6-10.4); Carbon Dioxide 29 mmol/L (22-30); Chloride 92 mmol/L (96-108); Globulin 2.6 gm/dL (2.2-3.7); Glomerular Filtration Rate 50; Glucose 652 mg/dL (70-105); Potassium 4.4 mmol/L (3.3-5.1); Sodium 132 mmol/L (133-145)
[2024-09-11] MEDS: INSULIN REGULAR, HUMAN 1 UNIT/0.01 ML UNIT SQ ONE (20:46)
[2024-09-11 22:34] LABS: Free T4 (Free Thyroxine) 1.09 ng/dL (0.93-1.70)
[2024-09-12] MEDS ORDERED: DEXTROSE 31 GM ORAL.SUSP PO PRN (03:40)
[2024-09-12] MEDS ORDERED: ONDANSETRON 4 MG/2 ML VIAL IV PRN (03:40)
[2024-09-12] MEDS ORDERED: DEXTROSE 50% 50 ML VIAL IV PRN (03:40)
[2024-09-12] MEDS: 0.9 % SODIUM CHLORIDE 1,000 ML IV SCH (05:00)
[2024-09-12] MEDS ORDERED: INSULIN LISPRO 1 UNIT/0.01 ML UNIT SQ SCH ×2 (07:30)
[2024-09-12] MEDS: INSULIN LISPRO 1 UNIT/0.01 ML UNIT SQ SCH (08:32)
[2024-09-12] MEDS: cefTRIAXone 1 GM VIAL IV SCH (08:39)
[2024-09-12] MEDS: ENOXAPARIN 40 MG/0.4 ML SYRINGE SQ SCH (08:39)
[2024-09-12 08:45] LABS: Albumin 3.4 gm/dL (3.2-5.2); Blood Urea Nitrogen 29 mg/dL (8-23); Calcium 11.4 mg/dL (8.6-10.4); Carbon Dioxide 28 mmol/L (22-30); Chloride 102 mmol/L (96-108); Glomerular Filtration Rate 57; Glucose 187 mg/dL (70-105); Phosphorous 2.2 mg/dL (2.5-4.5); Potassium 3.4 mmol/L (3.3-5.1); Sodium 138 mmol/L (133-145)
[2024-09-12] MEDS ORDERED: INSULIN GLARGINE, HUMAN 1 UNIT/0.01 ML SQ SCH (09:00)
[2024-09-12 09:01] LABS: Estimated Average Glucose(eAG) 312 mg/dL; Hemoglobin A1C 12.5 % Hgb (4.0-6.0)
[2024-09-12] MEDS: predniSONE 5 MG TABLET PO SCH (17:37)
[2024-09-12] MEDS: ACETAMINOPHEN 500 MG TABLET PO PRN (17:37)
[2024-09-12] MEDS: ATORVASTATIN 10 MG TABLET PO SCH (21:26)
[2024-09-12] MEDS: ASPIRIN 81 MG TAB.CHEW PO SCH (21:26)
[2024-09-12] MEDS: MIRTAZAPINE 15 MG TABLET PO SCH (21:27)
[2024-09-12] MEDS: PREGABALIN 25 MG CAPSULE PO SCH (21:27)
[2024-09-13 06:59] LABS: Basophils # (Auto) 0.01 K/mcL (0.00-0.30); Basophils % (Auto) 0.1 % (0.0-2.0); Eosinophils # (Auto) 0.04 K/mcL (0.00-0.70); Eosinophils % (Auto) 0.5 % (0.0-7.0); Hematocrit 41.2 % (34.1-44.9); Lymphocytes # (Auto) 1.23 K/mcL (1.50-4.80); Lymphocytes % (Auto) 16.1 % (15.5-49.0); Mean Cell Volume 95.6 fL (80.0-100.0); Mean Corpuscular HGB Conc 31.6 g/dL (31.0-36.0); Mean Platelet Volume 10.5 fL (8.8-12.5); Monocytes # (Auto) 0.36 K/mcL (0.10-0.90); Monocytes % (Auto) 4.7 % (1.0-12.0); Platelet Count 162 K/mcL (140-440); RBC 4.31 M/mcL (3.59-5.38); Red Cell Distribution Width 13.6 % (11.5-14.5); WBC 7.6 K/mcL (4.5-11.0)
[2024-09-13 07:03] LABS: ALT/SGPT 34 U/L (<40); AST/SGOT 25 U/L (<32); Albumin 3.2 gm/dL (3.2-5.2); Albumin/Globulin Ratio 1.5 (1.0-2.3); Alkaline Phosphatase 58 U/L (39-117); Bilirubin,Direct 0.3 mg/dL (<0.3); Bilirubin,Total 0.7 mg/dL (0.1-1.0); Blood Urea Nitrogen 28 mg/dL (8-23); Calcium 10.1 mg/dL (8.6-10.4); Carbon Dioxide 27 mmol/L (22-30); Chloride 106 mmol/L (96-108); Globulin 2.1 gm/dL (2.2-3.7); Glomerular Filtration Rate 65; Glucose 267 mg/dL (70-105); Lactate Dehydrogenase 218 U/L (135-225); Phosphorous 2.4 mg/dL (2.5-4.5); Potassium 4.3 mmol/L (3.3-5.1); Sodium 140 mmol/L (133-145); Triglycerides 140 mg/dL (<150); Uric Acid 4.7 mg/dL (2.5-8.0)
[2024-09-13] MEDS: OMEPRAZOLE 20 MG CAPSULE PO SCH (07:50)
[2024-09-13] MEDS: predniSONE 5 MG TABLET PO SCH (07:50)
[2024-09-13] MEDS: LOSARTAN 50 MG TABLET PO SCH (08:14)
[2024-09-13] MEDS: CELECOXIB 200 MG CAPSULE PO SCH (08:14)
[2024-09-13] MEDS: TIMOLOL 0.5% OPHTH DROPS BOTTLE 5ML OU SCH (09:12)
[2024-09-13] MEDS: LATANOPROST OPHTH DROPS 2.5ML BOTTLE OU SCH (09:12)
[2024-09-13] MEDS ORDERED: cefTRIAXone 1 GM VIAL IV SCH (09:15)
[2024-09-13] MEDS: FOSFOMYCIN TROMETHAMINE 3 GM PACKET PO ONE (12:51)
[2024-09-13] MEDS: INSULIN GLARGINE, HUMAN 1 UNIT/0.01 ML SQ SCH (20:25)
[2024-09-14] MEDS: predniSONE 5 MG TABLET PO SCH (07:37)
[2024-09-14] MEDS: INSULIN LISPRO 1 UNIT/0.01 ML UNIT SQ SCH (07:40)
[2024-09-14] MEDS: INSULIN GLARGINE, HUMAN 1 UNIT/0.01 ML SQ SCH (20:18)
[2024-09-15] MEDS: DULoxetine 30 MG CAPSULE PO SCH (08:42)
[2024-09-15] MEDS: DILTIAZEM 120 MG CAP.XL.24H PO SCH (08:43)
[2024-09-15 11:06] VITALS: TEMP 97.7; O2SAT 96
== END 2024-09-15 11:06 | DRG 71 ==
LOC: ED 18:13 → MEDSUR 18:13
PROVIDERS: ADMIT Internal Medicine; ATTEND Internal Medicine